=== PATIENT | female | born 1990 | race Caucasian/White ===

== ENCOUNTER 2020-05-19 12:08 | Emergency (ER) | payer OTHER ==
[~2020-05-19] VITALS: Ht 170.2 cm; Wt 79.7 kg
[2020-05-19 13:10] VITALS: BP 99/65
[2020-05-19] MEDS ORDERED: IV NORMAL SALINE 1,000ML 1,000 ML IV ONE (13:30)
[2020-05-19 13:57] LABS: BASO % 1 % (0-3); EOS % 1 % (0-3); HEMATOCRIT 40.9 % (36.0-47.0); HEMOGLOBIN 13.5 g/dL (12.0-15.5); LYMPH # 1.9 x10^3/uL (1.0-4.8); LYMPH % 26 % (24-48); MEAN CORPUSCULAR HEMOGLOBIN 32 pg (25-35); MEAN CORPUSCULAR HGB CONC 33 g/dL (31-37); MEAN CORPUSCULAR VOLUME 97 fL (79-100); MONO # 0.4 x10^3/uL (0.0-1.1); MONO % 5 % (0-9); NEUT % 67 % (31-73); PLATELET COUNT 327 x10^3/uL (140-400); RED BLOOD COUNT 4.24 x10^6/uL (3.50-5.40); RED CELL DISTRIBUTION WIDTH 12.9 % (11.5-14.5); WHITE BLOOD COUNT 7.4 x10^3/uL (4.0-11.0)
--- NOTE | 2020-05-19 14:16 | PHYS DOC ---
Past History Past Medical History: Anxiety (JOSEPH DIAZ APRN) Alcohol Use: None (JOSEPH DIAZ APRN) Adult General Chief Complaint Chief Complaint: VAGINAL BLEEDING HPI HPI Patient is a 30-year-old female patient who presents with vaginal bleeding and abdominal cramping. Patient reports she is approximately 6 weeks , however she just found out she is approximately 7 days ago. States 6 days ago she started have little bit of cramping, and light spotting, which has continued to get worse until last night, when her pain became severe and sharp. Patient states she has had a lot more bleeding, with some clots that came up today, has not passed any tissue. Patient reports she has had 2 prior miscarriages, this does feel similar to her previous ones. Patient . Does report she has not seen an [facility] yet at this time, [place]. Does report she has been on NuvaRing for , and when she removed it last, she realized that she had not had her menstrual cycle, took a test at home, and found to be positive. She has been taking some Tylenol for the pain. Denies any nausea, vomiting, diarrhea. States just the abdominal pain which becomes more severe at times. Denies any change in urination (JOSEPH DIAZ APRN) Review of Systems Review of Systems Constitutional: Denies fever or chills [] Respiratory: Denies cough or shortness of breath [] Cardiovascular: No additional information not addressed in HPI [] GI: Denies nausea, vomiting, bloody stools or diarrhea does report abdominal cramping [] : Denies dysuria or hematuria does report vaginal bleeding, with clots and large amount last night, which have been preceded by some spotting [] Musculoskeletal: Denies back pain or joint pain [] Integument: Denies rash or skin lesions [] Neurologic: Denies headache, focal weakness or sensory changes [] Endocrine: Denies polyuria or polydipsia [] All other systems were reviewed and found to be within normal limits, except as documented in this note. (JOSEPH DIAZ APRN) Current Medications Current Medications Current Medications Medications (Trade) Dose Ordered Sig/Otis Start Time Stop Time Status Last Admin Dose Admin Sodium Chloride 1,000 ml @ 1,000 mls/hr 1X ONCE 05/19/20 13:30 11/6/20 14:29 (JOSEPH DIAZ APRN) Allergies Allergies Allergies Coded Allergies Type Severity Reaction Last Updated Verified No Known Drug Allergies 05/19/20 No (JOSEPH DIAZ APRN) Physical Exam Physical Exam Constitutional: Well developed, well nourished, no acute distress, non-toxic appearance. [] HENT: Normocephalic, atraumatic, bilateral external ears normal, oropharynx moist, no oral exudates, nose normal. [] Eyes: PERRLA, EOMI, conjunctiva normal, no discharge. [] Neck: Normal range of motion, no tenderness, supple, no stridor. [] Cardiovascular:Heart rate regular rhythm, no murmur [] Lungs & Thorax: Bilateral breath sounds clear to auscultation [] Abdomen: Bowel sounds normal, soft, no tenderness, no masses, no pulsatile masses. [] Skin: Warm, dry, no erythema, no rash. [] Back: No tenderness, no CVA tenderness. [] Extremities: No tenderness, no cyanosis, no clubbing, ROM intact, no edema. [] Neurologic: Alert and oriented X 3, normal motor function, normal sensory function, no focal deficits noted. [] Psychologic: Affect normal, judgement normal, mood normal. [] (JOSEPH DIAZ APRN) Current Patient Data Vital Signs Vital Signs Date Time Temp Pulse Resp B/P (MAP) Pulse Ox O2 Delivery O2 Flow Rate FiO2 05/19/20 13:10 98.0 16 99/65 (76) 98 Room Air Lab Results Laboratory Tests Test 05/19/20 13:24 05/19/20 13:31 White Blood Count 7.4 x10^3/uL (4.0-11.0) Red Blood Count 4.24 x10^6/uL (3.50-5.40) Hemoglobin 13.5 g/dL (12.0-15.5) Hematocrit 40.9 % (36.0-47.0) Mean Corpuscular Volume 97 fL (79-100) Mean Corpuscular Hemoglobin 32 pg (25-35) Mean Corpuscular Hemoglobin Concent 33 g/dL (31-37) Red Cell Distribution Width 12.9 % (11.5-14.5) Platelet Count 327 x10^3/uL (140-400) Neutrophils (%) (Auto) 67 % (31-73) Lymphocytes (%) (Auto) 26 % (24-48) Monocytes (%) (Auto) 5 % (0-9) Eosinophils (%) (Auto) 1 % (0-3) Basophils (%) (Auto) 1 % (0-3) Neutrophils # (Auto) 5.0 x10^3uL (1.8-7.7) Lymphocytes # (Auto) 1.9 x10^3/uL (1.0-4.8) Monocytes # (Auto) 0.4 x10^3/uL (0.0-1.1) Eosinophils # (Auto) 0.0 x10^3/uL (0.0-0.7) Basophils # (Auto) 0.0 x10^3/uL (0.0-0.2) POC Urine HCG, Qualitative hcg positive (Negative) (JOSEPH DIAZ APRN) EKG EKG [] (JOSEPH DIAZ APRN) Radiology/Procedures Radiology/Procedures REASON: bleeding in PROCEDURE: OB <14 WKS W/TV OB <14 WKS W/TV History: Reason: bleeding in / Spl. Instructions: / History: Comparison: None. Technique: Grayscale and color Doppler imaging of the pelvis was performed using transabdominal technique. Findings: The uterus measures 9.5 x 6.5 x 5.5 cm. Single intrauterine facial sac with regular appearance. Yolk sac is identified. Possible early pole identified. No heart rate is identified. Estimated gestational age by ultrasound according to the gestational sac 5 weeks 3 days. Estimated date of completion by ultrasound January 16, 2021. Right ovary measures 2.5 x 2.7 x 1.4 cm. Left ovary measures 2.4 x 1.9 x 2.6 cm. Normal Doppler flow to the ovaries bilaterally. No adnexal masses are seen. IMPRESSION: 1. Single intrauterine gestational age 5 weeks 3 days. No heart rate is identified, likely related to early . Recommend short-term ultrasound follow-up and serial beta-hCG testing. Electronically signed by: Nate Colbert DO (05/19/2020 2:40 PM) [id number] DICTATED AND SIGNED BY: NAET COLBERT DO DATE: 05/19/20 1440[] (JOSEPH DIAZ APRN) Heart Score Risk Factors: Risk Factors: DM, Current or recent (<one month) smoker, HTN, HLP, family his tory of CAD, obesity. Risk Scores: Risk Factors: DM, Current or recent (<one month) smoker, HTN, HLP, family history of CAD, obesity. (JOSEPH DIAZ APRN) Course & Med Decision Making Course & Med Decision Making Pertinent Labs and Imaging studies reviewed. (See chart for details) [] Reviewed results with patient with noting intrauterine , however no pole noted at this time, believe due to early . Discussed with patient reports of repeat hCG testing as well as repeat ultrasound. Patient agreed with this plan, [place]. Will agree to have outpatient hCG drawn in 2 to 3 days, as well as referral to [facility] for further care as needed. Discussed patient course of bedrest, patient agreeable with this plan. (JOSEPH DIAZ APRN) Dragon Disclaimer Dragon Disclaimer This electronic medical record was generated, in whole or in part, using a voice recognition dictation system. (JOSEPH DIAZ APRN) Attending Co-Sign The patient was seen and interviewed as well as examined at the bedside. The chart was reviewed. The case was discussed. Agree with the plan of care. (JENNIFER MILES DO) Departure Departure: Impression: Primary Impression: Vaginal bleeding during Additional Impression: Vaginal bleeding in patient at less than 20 weeks gestation Disposition: 01 [place] HOME SELF CARE/HOMELESS Referrals: PCP,NO (PCP) Patient Instructions: Vaginal Bleeding During , First Trimester Additional Instructions: As we discussed today, [place] a repeat outpatient hCG in 2 to 3 days. Your hCG here today was 7582, which correlates to around 4-5 weeks . This lab test should be re-evaluated to see if this trending upwards or downwards, if it is trending downwards that is more negative that may be a miscarriage, or is trending upwards is more likely a viable . Irregardless, you should start taking vitamins. You should also consider an outpatient ultrasound as a follow-up, [place] can [place] They can also refer you to an [facility] at [place] or another facility of your choice who has [facility] services. Continue to take Tylenol for discomfort. Problem Qualifiers JOSEPH DIAZ APRN May 19, 2020 14:16 JENNIFER MILES DO May 20, 2020 06:10
[2020-05-19 14:36] LABS: CREATININE 0.9 mg/dL (0.6-1.0); POTASSIUM 3.6 mmol/L (3.5-5.1)
[2020-05-19 14:40] LABS: ALBUMIN 3.8 g/dL (3.4-5.0); TOTAL BILIRUBIN 0.2 mg/dL (0.2-1.0); TOTAL PROTEIN 7.5 g/dL (6.4-8.2)
[2020-05-19 14:43] LABS: BACTERIA,URINE FEW /HPF (0-FEW); BILIRUBIN,URINE NEG (NEG); CLARITY,URINE HAZY; COLOR,URINE YELLOW; GLUCOSE,URINE NEG (NEG); NITRITE,URINE NEG (NEG); SQUAMOUS EPITHELIAL CELL,UR MANY /LPF; UROBILINOGEN,URINE 0.2 mg/dL (0.2 mg/dL)
--- NOTE | 2020-05-19 14:43 | RAD ---
OB <14 WKS W/TV History: Reason: bleeding in / Spl. Instructions: / History: Comparison: None. Technique: Grayscale and color Doppler imaging of the pelvis was performed using transabdominal technique. Findings: The uterus measures 9.5 x 6.5 x 5.5 cm. Single intrauterine facial sac with regular appearance. Yolk sac is identified. Possible early pole identified. No heart rate is identified. Estimated gestational age by ultrasound according to the gestational sac 5 weeks 3 days. Estimated date of completion by ultrasound January 16, 2021. Right ovary measures 2.5 x 2.7 x 1.4 cm. Left ovary measures 2.4 x 1.9 x 2.6 cm. Normal Doppler flow to the ovaries bilaterally. No adnexal masses are seen. IMPRESSION: 1. Single intrauterine gestational age 5 weeks 3 days. No heart rate is identified, likely related to early . Recommend short-term ultrasound follow-up and serial beta-hCG testing. Electronically signed by: Nate Colbert DO (05/19/2020 2:40 PM) [id number]
== END 2020-05-19 15:36 | disposition home or self-care (01) ==
LOC: ER 12:08
DX: O46.91 Antepartum hemorrhage, unspecified, first trimester (principal); R10.9 Unspecified abdominal pain; F41.9 Anxiety disorder, unspecified; Z3A.01 Less than 8 weeks gestation of pregnancy
CPT/HCPCS: 36415; 76801; 76817; 80053; 81001; 81025; 84702; 85025; 86900; 86901; 96360; 99284; J7030

== ENCOUNTER 2020-06-29 09:08 | Emergency (ER) | payer OTHER ==
[~2020-06-29] VITALS: Ht 172.7 cm; Wt 77.2 kg
[2020-06-29 09:32] VITALS: BP 135/83
[2020-06-29] MEDS ORDERED: RIVA15TA PO (10:07)
[2020-06-29] MEDS ORDERED: RIVA20TA2 PO (10:07)
--- NOTE | 2020-06-29 10:07 | RAD ---
EXAMINATION: US DPLX VENOUS EXTREMITY LOWER RT, 06/29/2020 9:19 AM CLINICAL INDICATION: Right lower extremity swelling post knee arthroscopy. Evaluate for DVT COMPARISON: None Available. PROCEDURE: Multiple grayscale, color Doppler and spectral Doppler sonographic images of the right low er extremity were obtained. FINDINGS: The right popliteal vein is incompletely compressible with decreased flow, consistent with nonocclusive thrombosis. Additional thrombus seen in the posterior tibial and anterior peroneal veins . The posterior peroneal vein is patent. The right common femoral, superficial femoral veins are echo lucent with normal flow on color Doppler imaging and compressibility. IMPRESSION: Positive exam for nonocclusive acute deep venous thrombosis in the right popliteal, poste rior tibial, and peroneal veins. Critical results discussed by Dr. Wilson with Dr. Recinos at 10:00 AM on 06/29/2020. FOR INTERNAL CODING PURPOSES Critical result: Findings discussed with at 06/29/2020 10:04 AM. RESULT CODE: (C) Electronically signed by: Emely Wilson MD (06/29/2020 10:04 AM) [id number]
--- NOTE | 2020-06-29 10:10 | PHYS DOC ---
Past History Past Medical History: No Pertinent History Past Surgical History: Other Additional Past Surgical Histo: meniscus repair x3 right knee, breast reduction Alcohol Use: None General Adult EDM: Chief Complaint: LOWER EXT PAIN HPI: HPI: History gained from patient. Patient is a 30-year-old female past medical history significant for recent right knee arthroscopy who presents with complaint of right lower extremity discomfort. She was seen in orthopedic surgeon's office who advised her to report to the emergency department for evaluation of DVT. Denies any history of blood clot. Denies chest pain or shortness of breath. Does note some pain in the posterior right calf worse with ambulation or standing. Denies any redness. Denies any increased swelling. Denies fevers or new injury. No other complaints. Review of Systems: Review of Systems: Constitutional: Denies fever or chills Eyes: Denies change in visual acuity HENT: Denies nasal congestion or sore throat Respiratory: Denies cough or shortness of breath Cardiovascular: Denies chest pain or edema GI: Denies abdominal pain, nausea, vomiting, bloody stools or diarrhea : Denies dysuria Musculoskeletal: positive for right lower extremity pain Integument: Denies rash Neurologic: Denies headache, focal weakness or sensory changes Endocrine: Denies polyuria or polydipsia Lymphatic: Denies swollen glands Psychiatric: Denies depression or anxiety Allergies: Allergies: Allergies Coded Allergies Type Severity Reaction Last Updated Verified No Known Drug Allergies 05/19/20 No Physical Exam: PE: Constitutional: Well developed, well nourished, no acute distress, non-toxic appearance. [] HENT: Normocephalic, atraumatic, bilateral external ears normal, oropharynx moist, no oral exudates, nose normal. [] Eyes: PERRLA, EOMI, conjunctiva normal, no discharge. [] Neck: Normal range of motion, no tenderness, supple, no stridor. [] Cardiovascular:Heart rate regular rhythm, no murmur [] Lungs & Thorax: Bilateral breath sounds clear to auscultation [] Abdomen: soft, no tenderness, no masses, no pulsatile masses. [] Skin: Warm, dry, no erythema, no rash. [] Back: No tenderness, no CVA tenderness. [] Extremities: No tenderness, no cyanosis, no clubbing, ROM intact, no edema. Negative Homans' sign bilaterally [] Neurologic: Alert and oriented X 3, normal motor function, normal sensory function, no focal deficits noted. [] Psychologic: Affect normal, judgement normal, mood normal. [] Current Patient Data: Labs: Laboratory Tests Test 06/29/20 09:51 Sodium Level 135 mmol/L Potassium Level 3.8 mmol/L Chloride Level 104 mmol/L Carbon Dioxide Level 20 mmol/L Anion Gap 11 Blood Urea Nitrogen 13 mg/dL Creatinine 1.0 mg/dL Estimated GFR (Cockcroft-Gault) 65.6 Glucose Level 90 mg/dL Calcium Level 9.0 mg/dL Current Medications Medications (Trade) Dose Ordered Sig/Otis Route PRN Reason Start Time Stop Time Status Last Admin Dose Admin Acetaminophen/ Hydrocodone Bitart (Lortab 5/325) 1 tab 1X ONCE PO 06/29/20 10:15 06/29/20 10:31 DC 06/29/20 10:17 Vital Signs: Vital Signs Date Time Temp Pulse Resp B/P (MAP) Pulse Ox O2 Delivery O2 Flow Rate FiO2 06/29/20 09:32 98.0 91 18 135/83 (100) 96 Room Air EKG: EKG: [] Radiology/Procedures: Radiology/Procedures: [address] [address] IMAGING REPORT Signed PATIENT: GLORIA CASILLAS ACCOUNT: [id number] : 1990 LOCATION: ER AGE: 30 SEX: F EXAM STATUS: REG ER ORD. PHYSICIAN: VICTOR HUGO RECINOS DO REASON: RLE swelling s/p knee arthroscopy. eval for DVT PROCEDURE: VENOUS LOWER EXTREMITY RIGHT EXAMINATION: US DPLX VENOUS EXTREMITY LOWER RT, 06/29/2020 9:19 AM CLINICAL INDICATION: Right lower extremity swelling post knee arthroscopy. Evaluate for DVT COMPARISON: None Available. PROCEDURE: Multiple grayscale, color Doppler and spectral Doppler sonographic images of the right lower extremity were obtained. FINDINGS: The right popliteal vein is incompletely compressible with decreased flow, consistent with nonocclusive thrombosis. Additional thrombus seen in the posterior tibial and anterior peroneal veins. The posterior peroneal vein is patent. The right common femoral, superficial femoral veins are echolucent with normal flow on color Doppler imaging and compressibility. IMPRESSION: Positive exam for nonocclusive acute deep venous thrombosis in the right popliteal, posterior tibial, and peroneal veins. Critical results discussed by Dr. Wilson with Dr. Recinos at 10:00 AM on 06/29/2020. FOR INTERNAL CODING PURPOSES Critical result: Findings discussed with at 06/29/2020 10:04 AM. RESULT CODE: (C) Electronically signed by: Emely Wilson MD (06/29/2020 10:04 AM) [id number] DICTATED AND SIGNED BY: EMELY WILSON MD DATE: 06/29/20954 CC: PCP,UNKNOWN; VICTOR HUGO RECINOS DO ~MTH0 0 [] Heart Score: Risk Factors: Risk Factors: DM, Current or recent (<one month) smoker, HTN, HLP, family history of CAD, obesity. Risk Scores: Score 0 - 3: 2.5% MACE over next 6 weeks - Discharge Home Score 4 - 6: 20.3% MACE over next 6 weeks - Admit for Clinical Observation Score 7 - 10: 72.7% MACE over next 6 weeks - Early Invasive Strategies Course & Med Decision Making: Course & Med Decision Making Pertinent Labs and Imaging studies reviewed. (See chart for details) [] Patient is a pleasant 30-year-old female presents with chief complaint of right posterior calf pain status post knee arthroscopy. Ultrasound findings were positive for DVT extending into the popliteal venous system. Chemistry panel was obtained however kidney function was normal. Overall I do feel she is appropriate for outpatient rivaroxaban therapy. She was given her first dose of 15 mg of rivaroxaban. She was instructed to start her loading dose regimen of 50 mg twice daily for the next 3 weeks and then transition to 20 mg daily after that. She was instructed to follow-up with her primary care physician and orthopedic surgeons. Return precautions discussed and understood. Given the patient's DVT is likely provoked from her recent arthroscopy I not feel admis thong for coagulopathic work-up is indicated. Patient is agreement with this and follow-up outpatient. Stable for discharge home. Dragon Disclaimer: Dragimani Disclaimer: This electronic medical record was generated, in whole or in part, using a voice recognition dictation system. Departure Departure: Impression: Primary Impression: DVT (deep venous thrombosis) Qualified Codes: I82.431 - Acute embolism and thrombosis of right popliteal vein Disposition: HOME SELF CARE/HOMELESS Condition: STABLE Referrals: PCP,UNKNOWN (PCP) Patient Instructions: Deep Vein Thrombosis, Rivaroxaban oral tablets Additional Instructions: Please follow-up with your primary care physician and market specialist the next 2 to 3 days. Scripts Rivaroxaban (XARELTO) 20 Mg Tablet 1 TAB PO DAILY for DVT for 30 Days, #30 TAB 0 Refills with food Prov: VICTOR HUGO RECINOS DO 06/29/20 Rivaroxaban (XARELTO) 15 Mg Tablet 1 TAB PO BID for DVT for 21 Days, #42 TAB 0 Refills Prov: VICTOR HUGO RECINOS DO 06/29/20 VICTOR HUGO RECINOS DO Jun 29, 2020 10:10
[2020-06-29] MEDS ORDERED: HYDROcodone/APAP 5/325MG 1 TAB TABLET PO ONE (10:15)
[2020-06-29 10:38] LABS: GFR 65.6; POTASSIUM 3.8 mmol/L (3.5-5.1)
[2020-06-29] MEDS ORDERED: RIVAROXABAN 15 MG TABLET. PO ONE (10:45)
== END 2020-06-29 11:00 | disposition home or self-care (01) ==
LOC: ER 09:08
DX: I82.431 Acute embolism and thrombosis of right popliteal vein (principal)
CPT/HCPCS: 36415; 80048; 93971; 99284-25